=== PATIENT | female | born 1995 ===

== ENCOUNTER 2017-06-03 20:21 | Emergency (ER) | payer SELFPAY ==
[2017-06-03 20:21] VITALS: BMI 21.1
--- NOTE | 2017-06-03 22:40 | C.PDOC ---
Time Seen by Provider: 06/03/17 22:37 Chief Complaint (Nursing): Weakness/Neurological Deficit Past Medical History Vital Signs: Last Vital Signs Temp 98.8 F 06/03/17 21:26 Pulse 84 06/03/17 21:26 Resp 16 06/03/17 21:26 BP 99/59 L 06/03/17 21:26 Pulse Ox 99 06/03/17 21:26 - Medical History PMH: Graves' Disease (had sx 2016), HTN, Hyperthyroidism (Goiter), Pneumonia Denies: Chronic Kidney Disease - [facility] Procedures MONITORING NOS (08/25/13) INDUCT LABOR-RUPT MEMB (09/02/13) MANUAL ASSIST DELIV NEC (09/02/13) REPAIR OB LACERATION NEC (09/02/13) SURG INDUCT LABOR NEC (09/02/13) Family History: States: Unknown Family Hx, Hypertension - Social History Hx Tobacco Use: No Hx Alcohol Use: Yes Hx Substance Use: No - Immunization History Hx Tetanus Toxoid Vaccination: No Hx Influenza Vaccination: No Hx Pneumococcal Vaccination: No ED Course And Treatment O2 Sat by Pulse Oximetry: 99 Disposition Counseled Patient/Family Regarding: Studies Performed, Diagnosis - Disposition Disposition Time: 22:37
--- NOTE | 2017-06-03 22:43 | C.PDOC ---
History Of Present Illness Patient presents to the ER with a complaint of an intermittent tingling sensation to the arms and legs since her thyroidectomy in July 2016. Denies fever, chills, nausea, or vomiting. Time Seen by Provider: 06/03/17 22:37 Chief Complaint (Nursing): Weakness/Neurological Deficit History Per: Patient History/Exam Limitations: no limitations Onset/Duration Of Symptoms: Days, Intermittent Episodes Current Symptoms Are (Timing): Still Present Severity: None Recent travel outside of the [place]: No Past Medical History Reviewed: Historical Data, Nursing Documentation, Vital Signs Vital Signs: Last Vital Signs Temp 98.8 F 06/03/17 21:26 Pulse 84 06/03/17 21:26 Resp 16 06/03/17 21:26 BP 99/59 L 06/03/17 21:26 Pulse Ox 99 06/03/17 23:34 - Medical History PMH: Graves' Disease (had sx 2016), HTN, Hyperthyroidism (Goiter), Pneumonia - [facility] Procedures MONITORING NOS (08/25/13) INDUCT LABOR-RUPT MEMB (09/02/13) MANUAL ASSIST DELIV NEC (09/02/13) REPAIR OB LACERATION NEC (09/02/13) SURG INDUCT LABOR NEC (09/02/13) Family History: States: Hypertension - Social History Hx Tobacco Use: No Hx Alcohol Use: Yes Hx Substance Use: No - Immunization History Hx Tetanus Toxoid Vaccination: No Hx Influenza Vaccination: No Hx Pneumococcal Vaccination: No Review Of Systems Constitutional: Negative for: Fever, Chills Gastrointestinal: Negative for: Nausea, Vomiting Neurological: Positive for: Other (tingling sensation to arms and legs) Physical Exam - Physical Exam Appears: Non-toxic Skin: Warm, Dry Head: Normacephalic Eye(s): bilateral: Normal Inspection, PERRL Oral Mucosa: Moist Neck: Trachea Midline, Supple Chest: Symmetrical, No Tenderness Cardiovascular: Rhythm Regular Respiratory: No Rales, No Rhonchi, No Wheezing Gastrointestinal/Abdominal: Soft, No Tenderness Extremity: Other (Good strength and sensation to all extremities) Extremity: Bilateral: Atraumatic Pulses: Left Dorsalis Pedis: Normal, Right Dorsalis Pedis: Normal Neurological/Psych: Oriented x3, Normal Speech, Normal Cognition, Normal Cranial Nerves, Normal Motor, Normal Sensation, Normal Reflexes Gait: Steady ED Course And Treatment - Laboratory Results Result Diagrams: 06/03/17 23:08 06/03/17 23:08 O2 Sat by Pulse Oximetry: 99 (Room air) Pulse Ox Interpretation: Normal Progress Note: Blood work and urinalysis ordered. Reevaluation Time: 00:29 Reassessment Condition: Improved Disposition Counseled Patient/Family Regarding: Studies Performed, Diagnosis, Need For Followup - Disposition Referrals: [facility] [Outside] [facility] [Outside] Disposition: HOME/ ROUTINE Disposition Time: 22:43 Condition: FAIR Instructions: Hypothyroidism (ED), Hypocalcemia (ED), Paresthesia (ED) Forms: [employer] ([place]) - Clinical Impression Clinical Impression: Paresthesia, Hypothyroid, Hypocalcemia - Scribe Statement The provider has reviewed the documentation as recorded by the Scribe Nicolas Ferrara All medical record entries made by the Scribe were at my direction and personally dictated by me. I have reviewed the chart and agree that the record accurately reflects my personal performance of the history, physical exam, medical decision making, and the department course for this patient. I have also personally directed, reviewed, and agree with the discharge instructions and disposition.
[2017-06-03 23:25] LABS: SQUAMOUS EPITHIAL 3 /hpf (0-5); URINE BACTERIA OCC (<OCC); URINE BILIRUBIN NEGATIVE (NEGATIVE); URINE BLOOD 1+ (NEGATIVE); URINE CLARITY Hazy (Clear); URINE COLOR Yellow (YELLOW); URINE GLUCOSE (UA) NORMAL (Normal); URINE LEUKOCYTE ESTERASE TRACE Leu/uL (Negative); URINE NITRATE NEGATIVE (NEGATIVE); URINE PROTEIN NEGATIVE (NEGATIVE); URINE UROBILINOGEN NORMAL mg/dL (0.2-1.0)
[2017-06-03 23:26] LABS: BASO % 0.3 % (0.0-2.0); EOS # 0.3 K/uL (0.0-0.7); EOS % 3.9 % (0.0-4.0); HEMOGLOBIN 11.6 g/dL (11.0-16.0); LYMPH # 2.2 K/uL (1.0-4.3); LYMPH % 33.1 % (20.0-40.0); MEAN CORPUSCULAR HEMOGLOBIN 28.6 pg (27.0-31.0); MEAN CORPUSCULAR HGB CONC 33.6 g/dL (33.0-37.0); MEAN PLATELET VOLUME 8.6 fL (7.2-11.7); MONO # 0.3 K/uL (0.0-0.8); MONO % 4.2 % (0.0-10.0); NEUT # 3.9 K/uL (1.8-7.0); NEUT % 58.5 % (50.0-75.0); RBC 4.07 Mil/uL (3.80-5.20); WHITE BLOOD COUNT 6.7 K/uL (4.8-10.8)
[2017-06-03 23:27] LABS: HCG,QUALITATIVE URINE NEGATIVE (NEGATIVE)
[2017-06-03 23:28] LABS: ALB/GLOB RATIO 1.1 (1.0-2.1); ALBUMIN 3.9 g/dL (3.5-5.0); ALT/SGPT 29 U/L (9-52); AST/SGOT 29 U/L (14-36); BLOOD UREA NITROGEN 14 mg/dL (7-17); CALCIUM 7.6 mg/dl (8.6-10.4); GFR AFRICAN-AMERICAN > 60; GFR NON-AFRICAN AMERICAN > 60; MAGNESIUM 1.9 mg/dL (1.6-2.3); MEAN CELL VOLUME 85.3 fL (81.0-99.0)
[2017-06-04 00:38] VITALS: BP 116/65; PULSE 88; RESP 18; TEMP 98.5; O2SAT 100
== END 2017-06-04 00:38 | disposition home or self-care (01) ==
LOC: C.ER 20:21
DX: R20.2 Paresthesia of skin (principal); E03.9 Hypothyroidism, unspecified; E83.51 Hypocalcemia